=== PATIENT | female | born 1990 | race African-American/Black ===

== ENCOUNTER 2017-11-06 12:55 | Observation (INO) | payer OTHER ==
[2017-11-06] MEDS ORDERED: BETAMET ACET/BETAMET NA PH 30 MG/5 ML VIAL IM ONE (13:30)
[2017-11-06] MEDS ORDERED: BETAMET ACET/BETAMET NA PH 30 MG/5 ML VIAL ONE (13:50)
[2017-11-06] MEDS ORDERED: AMPICILLIN SODIUM 2 GM VIAL ONE (13:50)
[2017-11-06] MEDS ORDERED: AMPICILLIN - 2 GM in SODIUM CHLORIDE 100 ML IVPB ONE (14:00)
[2017-11-06 14:11] LABS: BASO % 0.6 % (0-2.0); EOS % 0.5 % (0-4.5); HEMATOCRIT 28.4 % (32.4-45.2); HEMOGLOBIN 9.2 GM/dL (10.7-15.3); MCH 27.7 pg (25.7-33.7); MCHC 32.3 g/dl (32.0-36.0); MEAN CELL VOLUME 85.6 fl (80-96); MEAN PLT VOLUME 8.7 fl (7.5-11.1); MONO % 5.2 % (3.8-10.2); NEUT % 72.7 % (42.8-82.8); PLATELET COUNT 177 K/MM3 (134-434); RBC 3.31 M/mm3 (3.60-5.2); RDW 12.9 % (11.6-15.6); WHITE BLOOD COUNT 6.5 K/mm3 (4.0-10.0)
[2017-11-06 14:22] LABS: INR 1.13 (0.82-1.09); PROTHROMBIN TIME (PATIENT) 12.8 SEC (9.98-11.88)
[2017-11-06 14:24] LABS: ACTIVATED PTT 29.6 SECONDS (26.9-34.4)
[2017-11-06 14:26] LABS: CHLORIDE 105 mmol/L (98-107); POTASSIUM 3.6 mmol/L (3.5-5.1); SODIUM 138 mmol/L (136-145)
[2017-11-06 14:30] LABS: ANION GAP 9 (8-16); BLOOD UREA NITROGEN 7 mg/dL (7-18); CALCIUM 8.3 mg/dL (8.5-10.1); CO2 24 mmol/L (21-32); CREATININE 0.7 mg/dL (0.55-1.02); GLUCOSE,RANDOM 148 mg/dL (74-106)
[2017-11-06] MEDS ORDERED: DEXTROSE 5%-LACTATED RINGERS 1,000 ML IV SCH (15:00)
[2017-11-06 15:24] VITALS: BMI 28.3
--- NOTE | 2017-11-06 15:42 | HP ---
Past Medical History - Primary Care Physician PCP:: Aurora Pedraza - Admission Chief Complaint: 27 yrs , 33 weeks , gestation c/o feeling wet since 11.00 am, ? leaking. No pains. denies h/o sexual contact.as per nurse nitrazine was positive ,she noticed fluid at introitus . she was admitted . As per physician exam no evidence of leaking , neg nitrazine. Since she has h/o 2 ptl in past , she is admitted under observation . History of Present Illness: PNC started at [facility] , transferred to [address] [place] [address] Work Up : O Pos, Hbsag neg, Rpr nr, Hiv neg, Rubella non immune, Hgb AA , Cystic fibrosis neg, Fragile x neg, [facility] Virus neg, SMN neg , Quantiferon neg, 1 hr Gtt 92, . h/o Abn pap Ascus , 03/30/18 Colpo benign . Sono by [facility] 10/28/17 SLIUP, Vx, NADIA 13.7. 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 No: Fibroids ...: 6 ...Para: 2 ...Term: 0 ...: 2 ...Spon : 1 ...Induced : 2 ...Multiple Gestation: 0 ...LMP: 03/20/17 ... Weeks Gestation by Dates: 33.0 ...EDC by Dates: 12/25/16 ...EDC by Sono: 12/25/16 Additional OB History: G1 05/2011 21.2 weeks , vag, del . [place]. baby after 2 hrs. G2 2012 4-6 weeks Sp ab. G3 2014 Ind Ab. G4 04/07/2015 36.4 weks, 5'15" (h/o Prom )- [facility] . [id number] 4-6 weeks Ind ab Heme/Onc: Yes: Anemia (pt is non compliant with po iron ,& dietary iron) Infectious Disease: Yes: STD's (hpv). No: AIDS, HIV, Tuberculosis Psych: Yes: Other (denies) - Past Surgical History Past Surgical History: Yes: None Hx Myomectomy: No Hx Transabdominal Cerclage: No - Smoking History Smoking history: Never smoked Have you smoked in the past 12 months: No - Alcohol/Substance Use Hx Alcohol Use: No History of Substance Use: reports: None - Social History History of Recent Travel: No Home Medications - Allergies Allergies/Adverse Reactions: Allergies Allergy/AdvReac Type Severity Reaction Status Date / Time No Known Allergies Allergy Verified 11/06/17 14:15 - Home Medications Home Medications: Ambulatory Orders Ferrous Sulfate [Feosol] 325 mg PO BID 11/06/17 Vit Calc,Iron,Folic [ Vitamins] 1 tab PO DAILY 11/06/17 Physical Exam - Maternity Vital Signs: Vital Signs Temperature 97.9 F 11/06/17 15:00 Pulse Rate 99 H 11/06/17 15:00 Respiratory Rate 18 11/06/17 15:00 Blood Pressure 106/58 11/06/17 15:00 O2 Sat by Pulse Oximetry (%) Constitutional: Yes: Well Nourished, No Distress Eyes: Yes: WNL HENT: Yes: Normocephalic Neck: Yes: WNL Cardiovascular: Yes: WNL Lungs: Clear to auscultation Breast(s): Yes: WNL - Abdominal Exam/OB Fundal Height: 33 Number of Fetuses: Single Presentation: Vertex Contractions: No Heart Rate (range): 140 Heart Rate Location: [facility] Category: I (loss of contact is seen on monitoring. I doubt of decelration ) Accelerations: Uniform Decelerations: None - Vaginal Exam/OB Vaginal Bleediing: No Speculum Exam: Yes Dilatation (cm): close Effacement (%): unefface Amniotic Membrane Status: Intact Nitrazine Test: Negative Presentation: Vertex/Position Station: -4 - Physical Exam Musculoskeletal: Yes: WNL Extremities: Yes: WNL. No: Calf Tenderness Edema: No Integumentary: Yes: Tattoos Deep Tendon Reflex Grade: Normal +2 Psychiatric: Yes: WNL, Alert, Oriented - Labs Lab Results: CBC, BMP 11/06/17 14:02 11/06/17 14:02 Laboratory Tests 11/06/17 11/06/17 11/06/17 14:02 14:02 14:02 PT with INR 12.80 H INR 1.13 PTT (Actin FS) 29.6 Urine Protein Urine Glucose (UA) Urine Ketones RPR Titer Nonreactive Blood Type O POSITIVE Antibody Screen Negative 11/06/17 15:30 PT with INR INR PTT (Actin FS) Urine Protein 1+ H Urine Glucose (UA) 1+ H Urine Ketones 1+ H RPR Titer Blood Type Antibody Screen Problem List - Problems (1) 33 weeks gestation of Code(s): Z3A.33 - 33 WEEKS GESTATION OF (2) Iron deficiency anemia due to dietary causes Code(s): D50.8 - OTHER IRON DEFICIENCY ANEMIAS Assessment/Plan 27 yrs 33 weeks gestation is admitted for obseravtion for possible high leaking of amniotic fluid ,because speculum exam, repeat ntrazine neg, sonogram normal NAIDA ( 13.8)same as compare to sono done on 10/28/17(13.7). , EFW 4'6" (35%tile) , Bpp 8/8 , Vx , Ant placenta Plan : observe. let her ambulate with pad, check the pads . If she has leaking again, reevaluate inj Betamethasone 12.5 mg x 2dose 24 hrs apart Iv Ampicillin emperically , will d/c if evidence of leaking is not seen later on again NST q 3hr
[2017-11-06 16:01] LABS: URINE APPEARANCE CLEAR; URINE BILIRUBIN NEGATIVE (<2.0 mg/dL); URINE BLOOD NEGATIVE (NEGATIVE); URINE COLOR YELLOW; URINE GLUCOSE (UA) 1+ (NEGATIVE); URINE KETONE 1+ (NEGATIVE); URINE LEUK ESTERASE NEGATIVE (NEGATIVE); URINE NITRITE NEGATIVE (NEGATIVE); URINE UROBILINOGEN NEGATIVE mg/dL (0.2-1.0)
[2017-11-06 16:02] LABS: URINE PROTEIN 1+ (NEGATIVE)
[2017-11-06 16:33] LABS: EPI CELLS RARE /HPF (FEW); URINE MUCUS RARE
[2017-11-06] MEDS ORDERED: AMPICILLIN SODIUM 1 GM VIAL ONE (17:52)
[2017-11-06] MEDS: AMPICILLIN - 1 GM in SODIUM CHLORIDE 100 ML IVPB SCH ×3 (19:20→22:35)
[2017-11-06 21:15] VITALS: BP 108/62; PULSE 104; TEMP 98.6
--- NOTE | 2017-11-06 22:43 | PN ---
Progress Note (short form) - Note Progress Note: 10.20 PM , pt's peripads were checked by nurses twice , they were dry, & nitrazine was neg. pt is no longer leaking .No c/o UC, no fever. FM are active I rechecked her . PS exam : normal discharge in vagina . No pooling nitrazine neg pelvic exam : cx close, unefface , [place] , Vx-3/-4 Monitor : : uc : irregular mild, 2 in hr , FHR 130 , reactive , cat-1 Selected Entries 11/06/17 20:30 Temperature 98.6 F Pulse Rate 104 H Blood Pressure 108/62 Blood Pressure 77 Mean Ass;I doubt she has Pprom or high leak 33 weeks, anemia discharge the patient return to L&D tomorrow at 1.)0 pm for 2nd dose of betamethasone pt is already given appt for follow up sono on 11/10/17 with MFM she will follow in the clinic Instructions were given to keep kick count, labor s&s given, plenty po fluids , pelvic rest anemia counselled Problem List - Problems (1) 33 weeks gestation of Code(s): Z3A.33 - 33 WEEKS GESTATION OF (2) Iron deficiency anemia due to dietary causes Code(s): D50.8 - OTHER IRON DEFICIENCY ANEMIAS
[2017-11-07] MEDS ORDERED: BETAMET ACET/BETAMET NA PH 30 MG/5 ML VIAL IM ONE (13:50)
== END 2017-11-06 23:23 | disposition home or self-care (01) ==
LOC: JDEL 12:55 → INTOOBSV 13:30 → JLDR 13:30 → UNDOADMOB 13:30 → JLDR 14:04
PROVIDERS: ADMIT Obstetrics & Gynecology; ATTEND Obstetrics & Gynecology
PROC: 3E03329 Introduction of Other Anti-infective into Peripheral Vein, Percutaneous Approach (ICD-10-PCS; principal; 2017-11-06)
PROC: 3E0337Z Introduction of Electrolytic and Water Balance Substance into Peripheral Vein, Percutaneous Approach (ICD-10-PCS; 2017-11-06)
PROC: 3E023GC Introduction of Other Therapeutic Substance into Muscle, Percutaneous Approach (ICD-10-PCS; 2017-11-06)
DX: Z03.71 Encounter for suspected problem with amniotic cavity and membrane ruled out (principal); O99.013 Anemia complicating pregnancy, third trimester; Z3A.33 33 weeks gestation of pregnancy; D50.8 Other iron deficiency anemias
CPT/HCPCS: 36415; 80048; 81003; 81015; 85025; 85610; 85730; 86593; 86850; 86900; 86901; 87070; 87086; 87205; 96365; 96372; G0378

== ENCOUNTER 2017-12-06 01:42 | Inpatient (IN) | payer OTHER ==
[2017-12-06] MEDS: DEXTROSE 5%-LACTATED RINGERS 1,000 ML IV SCH ×2 (03:00→08:32)
[2017-12-06 03:29] LABS: BASO % 0.3 % (0-2.0); HEMOGLOBIN 9.5 GM/dL (10.7-15.3); RBC 3.45 M/mm3 (3.60-5.2)
[2017-12-06 03:55] LABS: EOS % 0.6 % (0-4.5); LYMPH % 30.9 % (8-40); MCH 27.7 pg (25.7-33.7); MCHC 32.9 g/dl (32.0-36.0); MEAN CELL VOLUME 84.1 fl (80-96); MEAN PLT VOLUME 9.7 fl (7.5-11.1); MONO % 9.4 % (3.8-10.2); NEUT % 58.8 % (42.8-82.8); PLATELET COUNT 163 K/MM3 (134-434); RDW 13.3 % (11.6-15.6); WHITE BLOOD COUNT 5.9 K/mm3 (4.0-10.0)
[2017-12-06 04:06] LABS: ANION GAP 11 (8-16); BLOOD UREA NITROGEN 12 mg/dL (7-18); CALCIUM 8.5 mg/dL (8.5-10.1); CHLORIDE 105 mmol/L (98-107); CO2 23 mmol/L (21-32); CREATININE 0.5 mg/dL (0.55-1.02); GLUCOSE,RANDOM 108 mg/dL (74-106); INR 1.07 (0.82-1.09); PROTHROMBIN TIME (PATIENT) 12.1 SEC (9.7-13.0); SODIUM 139 mmol/L (136-145)
[2017-12-06 05:59] VITALS: BMI 28.3
[2017-12-06] MEDS ORDERED: OXYTOCIN 30 UNITS in 0.9% NS 30 UNIT/500 ML INFUS.BAG IVPB ONE (11:19)
[2017-12-06] MEDS ORDERED: PROMETHAZINE HCL 25 MG/1 ML VIAL IVPUSH ONE (11:20)
[2017-12-06] MEDS ORDERED: BUTORPHANOL TARTRATE 1 MG/ML VIAL IVPB ONE (11:20)
--- NOTE | 2017-12-06 11:27 | HP ---
Past Medical History - Admission Chief Complaint: Rupture of membrane History of Present Illness: 27 yo @ 37 weeks gestation, EDC 12/27/17, presents to L&D c/o leakage of fluid. She had 2 prior deliveries. Upon admission she was 4cm dilated. History Source: Patient Limitations to Obtaining History: No Limitations - Past Medical History ...: 6 ...Para: 2 ...Term: 0 ...: 1 ...Spon : 2 ...Induced : 2 ...LMP: 03/20/17 ... Weeks Gestation by Dates: 37.2 ...EDC by Dates: 12/25/17 ...EDC by Sono: 12/27/17 Heme/Onc: Yes: Anemia (pt is non compliant with po iron ,& dietary iron) Infectious Disease: Yes: STD's (hpv). No: AIDS, HIV, Tuberculosis Psych: Yes: Other (denies) - Past Surgical History Past Surgical History: Yes: None Hx Myomectomy: No Hx Transabdominal Cerclage: No - Smoking History Smoking history: Never smoked Have you smoked in the past 12 months: No - Alcohol/Substance Use Hx Alcohol Use: No History of Substance Use: reports: None - Social History Usual Living Arrangement: Yes: With Significant Other History of Recent Travel: No Home Medications - Allergies Allergies/Adverse Reactions: Allergies Allergy/AdvReac Type Severity Reaction Status Date / Time No Known Allergies Allergy Verified 11/07/17 13:18 - Home Medications Home Medications: Ambulatory Orders Ferrous Sulfate [Feosol] 325 mg PO BID 11/06/17 Vit Calc,Iron,Folic [ Vitamins] 1 tab PO DAILY 11/06/17 Family Disease History - Family Disease History Family History: Unremarkable Review of Systems - Review of Systems Constitutional: reports: No Symptoms Eyes: reports: No Symptoms HENT: reports: No Symptoms Neck: reports: No Symptoms Cardiovascular: reports: No Symptoms Respiratory: reports: No Symptoms Gastrointestinal: reports: No Symptoms Genitourinary: reports: Other (Leakage of fluid) Breasts: reports: No Symptoms Reported Musculoskeletal: reports: No Symptoms Neurological: reports: No Symptoms Hematology/Lymphatic: reports: No Symptoms Psychiatric: reports: No Symptoms Pain Intensity: 7 Physical Exam - Maternity Vital Signs: Vital Signs Temperature 98.5 F 12/06/17 10:00 Pulse Rate 94 H 12/06/17 11:00 Respiratory Rate 18 12/06/17 11:00 Blood Pressure 108/53 12/06/17 11:00 O2 Sat by Pulse Oximetry (%) Constitutional: Yes: Well Nourished Eyes: Yes: Conjunctiva Clear HENT: Yes: Atraumatic Neck: Yes: Supple Cardiovascular: Yes: Regular Rate and Rhythm Lungs: Clear to auscultation - Abdominal Exam/OB Number of Fetuses: Single Presentation: Vertex Contractions: Yes Regularity: Irregular Intensity: Moderate - Vaginal Exam/OB Dilatation (cm): 5 Effacement (%): 80 Amniotic Membrane Status: Ruptured Nitrazine Test: Positive Amniotic Fluid: Yes: Clear Station: -1 - Physical Exam Musculoskeletal: Yes: WNL Extremities: Yes: WNL ...Motor Strength: WNL Psychiatric: Yes: Alert, Oriented - Labs Lab Results: CBC, BMP 12/06/17 02:50 12/06/17 02:50 Problem List - Problems (1) 37 weeks gestation of Code(s): Z3A.37 - 37 WEEKS GESTATION OF (2) Rupture of amniotic sac under 24 hours before onset of labor Code(s): O42.90 - VIANEY ROM, 7TH0 BETW RUPT & ONST LABR, UNSP WEEKS OF GEST Qualifiers: PROM gestational age: full term Assessment/Plan IUP @ 37 weeks Spontaneous rupture of membrane Admit to L&D Pitocin augmentation Anticipate
[2017-12-06] MEDS ORDERED: OXYTOCIN 30 UNITS in 0.9% NS 30 UNIT/500 ML INFUS.BAG IVPB SCH (11:30)
[2017-12-06] MEDS ORDERED: OXYTOCIN 20 UNITS in 0.9% NS 20 UNIT/1,000 ML INFUS.BAG IV ONE ×2 (13:34→15:42)
[2017-12-06] MEDS ORDERED: BENZOCAINE 28 GM HEMORRHOIDAL OINTMENT TP PRN (14:02)
[2017-12-06] MEDS ORDERED: BENZOCAINE 20% 57 GM BOTTLE TP PRN (14:02)
[2017-12-06] MEDS ORDERED: METHYLERGONOVINE MALEATE 0.2 MG/1 ML AMP IM PRN (14:02)
[2017-12-06] MEDS ORDERED: WITCH HAZEL 50% (TUCKS) 40 PAD/JAR PAD TP PRN (14:02)
[2017-12-06] MEDS ORDERED: BISACODYL 10 MG SUPP.RECT RC PRN (14:02)
--- NOTE | 2017-12-06 14:09 | PN ---
Delivery - Delivery Type of Anesthesia: Local EBL (cc): 400 Delivery, Single - Silt Feeding Plan Initial Plan: Elected not to breastfeed exclusively throughout hospitalization Remarks - Remarks Remarks: Normal spontaneous vaginal delivery of a live girl over intact perineum. Nose / Oropharynx suctioned @ perineum. Nuchal cord x 1 clamped and cut. Placenta expelled spontaneously intact. Mother in stable condition.
[2017-12-06] MEDS ORDERED: OXYTOCIN 20 UNITS in 0.9% NS 20 UNIT/1,000 ML INFUS.BAG IV SCH (14:15)
[2017-12-06] MEDS ORDERED: IBUPROFEN 600 MG TABLET (FP) PO ONE (15:04)
[2017-12-06] MEDS ORDERED: ACETAMINOPHEN 325 MG TABLET (FP) ONE (15:04)
[2017-12-06] MEDS: IBUPROFEN 600 MG TABLET (FP) PO PRN ×3 (15:05→23:10)
[2017-12-06] MEDS: ACETAMINOPHEN 325 MG TABLET (FP) PO PRN ×3 (15:05→21:11)
[2017-12-06] MEDS: FERROUS SO4 325 MG TABLET (FP) PO SCH (16:35)
[2017-12-07] MEDS: IBUPROFEN 600 MG TABLET (FP) PO PRN ×2 (03:21→13:33)
[2017-12-07] MEDS: ACETAMINOPHEN 325 MG TABLET (FP) PO PRN ×2 (03:22→13:34)
--- NOTE | 2017-12-07 04:55 | PN ---
Post Progress Note - Subjective Subjective: 27 yo Para 2 status post vaginal delivery, seen and evaluated. Doing well. Post Day: 1 Type of Delivery: Vital Signs: Vital Signs Temperature 98.7 F 12/06/17 20:00 Pulse Rate 82 12/06/17 20:00 Respiratory Rate 18 12/06/17 20:00 Blood Pressure 116/63 12/06/17 20:00 O2 Sat by Pulse Oximetry (%) Breast Exam: Yes: Soft Uterus: Yes: Fundus Firm Abdomen/GI: Yes: Tolerating PO Lochia: Yes: Rubra Lochia, amount: Moderate Extremities: Yes: Calves non-tender Perineum: Yes: Intact Activity: Ambulating - Labs Labs: CBC WBC 5.9 K/mm3 (4.0-10.0) 12/06/17 02:50 RBC 3.45 M/mm3 (3.60-5.2) L 12/06/17 02:50 Hgb 9.5 GM/dL (10.7-15.3) L 12/06/17 02:50 Hct 29.0 % (32.4-45.2) L 12/06/17 02:50 MCV 84.1 fl (80-96) 12/06/17 02:50 MCH 27.7 pg (25.7-33.7) 12/06/17 02:50 MCHC 32.9 g/dl (32.0-36.0) 12/06/17 02:50 RDW 13.3 % (11.6-15.6) 12/06/17 02:50 Plt Count 163 K/MM3 (134-434) 12/06/17 02:50 MPV 9.7 fl (7.5-11.1) D 12/06/17 02:50 Neutrophils % 58.8 % (42.8-82.8) 12/06/17 02:50 Lymphocytes % 30.9 % (8-40) D 12/06/17 02:50 Monocytes % 9.4 % (3.8-10.2) D 12/06/17 02:50 Eosinophils % 0.6 % (0-4.5) 12/06/17 02:50 Basophils % 0.3 % (0-2.0) 12/06/17 02:50 Problem List - Problems (1) 37 weeks gestation of Code(s): Z3A.37 - 37 WEEKS GESTATION OF (2) Rupture of amniotic sac under 24 hours before onset of labor Code(s): O42.90 - VIANEY ROM, 7TH0 BETW RUPT & ONST LABR, UNSP WEEKS OF GEST Qualifiers: PROM gestational age: full term (3) Status post normal vaginal delivery Code(s): [id number] - Assessment/Plan Status post Stable Continue routine care
[2017-12-07 08:30] LABS: BASO % 0.3 % (0-2.0); EOS % 0.2 % (0-4.5); HEMATOCRIT 32.1 % (32.4-45.2); HEMOGLOBIN 10.4 GM/dL (10.7-15.3); LYMPH % 14.9 % (8-40); MCH 27.4 pg (25.7-33.7); MCHC 32.3 g/dl (32.0-36.0); MEAN PLT VOLUME 9.5 fl (7.5-11.1); MONO % 5.6 % (3.8-10.2); PLATELET COUNT 197 K/MM3 (134-434); RBC 3.78 M/mm3 (3.60-5.2); RDW 13.4 % (11.6-15.6); WHITE BLOOD COUNT 12.5 K/mm3 (4.0-10.0)
[2017-12-07] MEDS: FERROUS SO4 325 MG TABLET (FP) PO SCH ×3 (08:39→17:13)
[2017-12-07] MEDS: PRENATAL VITAMINS W/ FOLIC ACID TABLET (FP) PO SCH (09:53)
--- NOTE | 2017-12-07 18:39 | DS ---
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: Vital Signs Temperature 98.7 F 12/07/17 07:15 Pulse Rate 76 12/07/17 07:15 Respiratory Rate 20 12/07/17 07:15 Blood Pressure 125/76 12/07/17 07:15 O2 Sat by Pulse Oximetry (%) Constitutional: Yes: Well Nourished Eyes: Yes: Conjunctiva Clear HENT: Yes: Atraumatic Neck: Yes: Supple Cardiovascular: Yes: Regular Rate and Rhythm Respiratory: Yes: Regular Gastrointestinal: Yes: Normal Bowel Sounds External Genitalia: Yes: Normal Vaginal Exam: Yes: Normal Cervix: Yes: Normal Uterus: Yes: Firm ....Post : Yes: Uterus firm, Moderate lochia serosa Breast(s): Yes: WNL Musculoskeletal: Yes: WNL Neurological: Yes: Alert, Oriented ...Motor Strength: WNL Psychiatric: Yes: Alert, Oriented Labs: CBC, BMP 12/07/17 08:20 12/06/17 02:50 Delivery - Delivery Type of Anesthesia: None Episiotomy/Laceration: None EBL (cc): 300 Delivery, Single - Stages of Labor Date 1st Stage Initiatied: 12/06/17 Time 1st Stage Initiated: 00:45 Date 2nd Stage Initiated: 12/06/17 Time 2nd Stage Initiated: 13:45 Date of Delivery: 12/06/17 Time of Delivery: 13:54 Time Placenta Delivered: 13:57 - Condition of Infant Monotype 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 Present: No Gender: Female Weight: 6 lb 3 oz Position: Left, OA Total Hours ROM (Hrs/Mins): 13hrs 13min - 1 Minute Total Score: 9 5 Minutes Total Score: 9 - Feeding Plan Initial Plan: Elected not to breastfeed exclusively throughout hospitalization Discharge Summary Reason For Visit: LABOR ASSESS Current Active Problems 37 weeks gestation of (Acute) Rupture of amniotic sac under 24 hours before onset of labor (Acute) Status post normal vaginal delivery (Acute) Procedures: Principal: Normal vaginal delivery Hospital Course: Routine care Condition: Good - Instructions Diet, Activity, Other Instructions: Regular diet No douching, no sexual intercourse x 6 weeks F/U in clinic in 6 weeks Disposition: HOME - Home Medications Comprehensive Discharge Medication List: Ambulatory Orders Ferrous Sulfate [Feosol] 325 mg PO BID 11/06/17 Vit Calc,Iron,Folic [ Vitamins] 1 tab PO DAILY 11/06/17
[2017-12-07] MEDS ORDERED: SENNOSIDES/DOCUSATE COMBO (SENNA PLUS) TABLET (UD) PO PRN (22:00)
[2017-12-08] MEDS: IBUPROFEN 600 MG TABLET (FP) PO PRN ×2 (00:31→07:54)
[2017-12-08] MEDS: ACETAMINOPHEN 325 MG TABLET (FP) PO PRN ×2 (00:31→07:53)
[2017-12-08] MEDS: FERROUS SO4 325 MG TABLET (FP) PO SCH ×2 (07:53→12:00)
[2017-12-08 08:07] VITALS: BP 128/62; PULSE 70; TEMP 98.5
[2017-12-08] MEDS: PRENATAL VITAMINS W/ FOLIC ACID TABLET (FP) PO SCH (09:49)
== END 2017-12-08 12:15 | disposition home or self-care (01) | DRG 560 ==
LOC: JDEL 01:42 → JLDR 02:20 → J3W 15:51
PROVIDERS: ADMIT Obstetrics & Gynecology; ATTEND Obstetrics & Gynecology
PROC: 10E0XZZ Delivery of Products of Conception, External Approach (ICD-10-PCS; principal; 2017-12-06)
DX: O80 Encounter for full-term uncomplicated delivery (principal); Z3A.37 37 weeks gestation of pregnancy; Z37.0 Single live birth
CPT/HCPCS: 36415; 59409; 80048; 85025; 85610; 85730; 86593; 86850; 86900; 86901